=== PATIENT | female | born 1955 | race Caucasian/White ===

== ENCOUNTER 2018-11-19 20:17 | Inpatient (IN) | payer OTHER ==
[~2018-11-19] VITALS: Ht 154.9 cm; Wt 59.9 kg
[2018-11-20] VITALS: BP 110/75
[2018-11-20 00:15] VITALS: BP 110/75
--- NOTE | 2018-11-20 00:30 | NUR ---
SENIOR OCCUPATIONAL THERAPIST NOTE PT ARRIVED TO FLOOR IN VIA GURNEY ACCOMPANIED BY AMBULANCE PERSONNEL AND CAREGIVER. PT IN STABLE CONDITION A&O X2-3. ABLE TO MAKE NEEDS KNOWN. NO SIGNS OF SOB OR DISTRESS NO C/O PAIN. VS ARE STABLE UPON ARRIVAL. RFA #22 S/L. ALL BELONGINGS ACCOUNTED AND SIGNED FOR. SKIN IS INTACT UPON BODY CHECK. TORRES GOLDEN INSIDE SALES CONSULTANT NOTIFIED OF PT. ARRIVAL TO UNIT, AWAITING ADMISSION ORDERS. ALL CURRENT NEEDS ATTENDED TO. BED LOW, LOCKED, UPPER RAILS UP AND CALL LIGHT WITHIN REACH. WILL CONT TO MONITOR.
[2018-11-20] MEDS ORDERED: MAG HYDROX/AL HYDROX/SIMETH 30 ML UDC PO PRN (03:30)
[2018-11-20] MEDS ORDERED: Z GUARD REMEDY 2 OZ OINT TP PRN (03:30)
[2018-11-20] MEDS ORDERED: ONDANSETRON HCL/PF 4 MG/2 ML VIAL IVP PRN (03:30)
[2018-11-20] MEDS ORDERED: ACETAMINOPHEN 325 MG TABLET PO PRN (03:30)
[2018-11-20] MEDS ORDERED: MAGNESIUM HYDROXIDE 30 ML UDC PO PRN (03:30)
[2018-11-20] MEDS ORDERED: HYDROCODONE/APAP 5/325MG 1 EACH TABLET PO PRN (03:30)
[2018-11-20] MEDS ORDERED: ZOLPIDEM TARTRATE 5 MG TABLET PO PRN (03:30)
[2018-11-20] MEDS ORDERED: FERR325T23 PO (03:59)
[2018-11-20] MEDS ORDERED: RISP1TAB7 PO (03:59)
[2018-11-20] MEDS ORDERED: BENZ0.5T43 PO (03:59)
[2018-11-20] MEDS ORDERED: BUPR-51 PO (03:59)
[2018-11-20] MEDS ORDERED: FLUO40CA8 PO (03:59)
[2018-11-20] MEDS ORDERED: CALC-494 PO (03:59)
[2018-11-20] MEDS ORDERED: SERT100T PO (03:59)
[2018-11-20] MEDS ORDERED: LEVO112T5 PO (03:59)
[2018-11-20] MEDS ORDERED: FOLI1TAB16 PO (03:59)
[2018-11-20] MEDS ORDERED: MULT1TAB73 PO (03:59)
[2018-11-20] MEDS ORDERED: DIVA500T2 PO (03:59)
[2018-11-20 04:00] VITALS: BP 124/78
[2018-11-20] MEDS ORDERED: CEFTRIAXONE 1 G VIAL ONE (04:24)
[2018-11-20] MEDS: CEFTRIAXONE 1 G in IV D5W 50 ML IV SCH (04:26)
[2018-11-20] MEDS: IV NS 0.9% 1,000 ML IV PRN ×2 (04:29→19:43)
[2018-11-20] MEDS ORDERED: AZITHROMYCIN 500 MG VIAL ONE (05:27)
[2018-11-20] MEDS: AZITHROMYCIN 500 MG in IV D5W 250 ML IV SCH (05:40)
--- NOTE | 2018-11-20 06:38 | NUR ---
TRAINING ADMINISTRATOR NOTE IN STABLE CONDITION A&O X2-3. ABLE TO MAKE NEEDS KNOWN. NO SIGNS OF SOB OR DISTRESS NO C/O PAIN. CAREGIVER AT BEDSIDE. PT CURRENTLY RESTING IN BED. RFA #22 S/L PATENT WITH IVF INFUSING. ALL CURRENT NEEDS ATTENDED TO. BED LOW, LOCKED, UPPER RAILS UP AND CALL LIGHT WITHIN REACH. WILL CONT TO MONITOR AND ENDORSE TO NEXT SHIFT FOR MYRA.
--- NOTE | 2018-11-20 07:10 | NUR ---
MS RN NOTES PATIENT IN BED ALERT ORIENTED X 2-3. NO ACUTE DISTRESS NOTED. BREATHING UNLABORED, NO SOB NOTED. IV ACCESS PATENT AND INTACT, NO REDNESS OR SWELLING NOTED. SAFETY MEASURES IN PLACE. CALL LIGHT WITHIN REACH. WILL CONTINUE TO MONITOR ACCORDINGLY.
[2018-11-20 07:15] LABS: BASOPHILS % (AUTO) 0.2 % (0.0-2.0); EOSINOPHILS % (AUTO) 0.9 % (0.0-6.0); HEMATOCRIT 37 % (33-45); LYMPHOCYTES # (AUTO) 1.7 /CMM (0.8-4.8); LYMPHOCYTES % (AUTO) 16.7 % (20.0-44.0); MEAN CORPUSCULAR HGB CONC 35 g/dl (31.0-36.0); MEAN CORPUSCULAR VOLUME 102 fL (82-100); MONOCYTES # (AUTO) 1.4 /CMM (0.1-1.30); MONOCYTES % (AUTO) 13.5 % (2.0-12.0); NEUTROPHILS # (AUTO) 6.9 /CMM (1.8-8.9); NEUTROPHILS % (AUTO) 68.7 % (43.0-81.0); PLATELET COUNT (AUTO) 131 /CMM (150-450); RED BLOOD CELL COUNT(AUTO) 3.65 MIL/uL (4.0-5.2)
[2018-11-20 07:48] LABS: ALBUMIN 2.4 g/dL (3.4-5.0); BILIRUBIN,TOTAL 0.2 mg/dL (0.2-1.0); CALCIUM, SERUM 9.3 mg/dL (8.5-10.1); CREATININE 0.5 mg/dL (0.6-1.3); MAGNESIUM 1.8 mg/dL (1.8-2.4); PHOSPHORUS 3.5 mg/dL (2.5-4.9); POTASSIUM 4.3 mmol/L (3.5-5.1); TOTAL PROTEIN, SERUM 5.9 g/dL (6.4-8.2)
[2018-11-20 07:52] LABS: THYROID STIMULATING HORMONE 5.573 uIU/mL (0.358-3.74)
[2018-11-20 08:00] VITALS: BP 105/67
[2018-11-20] MEDS: LEVOTHYROXINE SODIUM 112 MCG TABLET PO SCH (08:04)
[2018-11-20] MEDS: MULTIVITAMINS,THERAGRAN 1 UDTAB TABLET PO SCH (08:19)
[2018-11-20] MEDS: DIVALPROEX SODIUM 250 MG TABLET.DR PO SCH ×2 (08:19→17:19)
[2018-11-20] MEDS: BUPROPION XL 150 MG TAB.ER.24 PO SCH (08:19)
[2018-11-20] MEDS: CALCIUM CARBONATE (1250) 500 MG TABLET PO SCH ×2 (08:19→17:19)
[2018-11-20] MEDS: FOLIC ACID 1 MG TABLET PO SCH (08:19)
[2018-11-20] MEDS: FERROUS SULFATE (325 MG) 325 MG/TAB TABLET PO SCH ×2 (08:19→17:19)
[2018-11-20] MEDS ORDERED: FLUOXETINE HCL 20 MG CAPSULE PO SCH (09:00)
[2018-11-20] MEDS ORDERED: SERTRALINE HCL 50 MG TABLET PO SCH (11:00)
[2018-11-20 16:00] VITALS: BP 92/55
--- NOTE | 2018-11-20 18:54 | NUR ---
MS RN NOTES PATIENT IN BED ALERT ORIENTED X 2-3. NO ACUTE DISTRESS NOTED. BREATHING UNLABORED, NO SOB NOTED. IV ACCESS PATENT AND INTACT, NO REDNESS OR SWELLING NOTED. DUE MEDICATIONS GIVEN. NEEDS ATTENDED AND ANTICIPATED. KEPT CLEAN DRY AND COMFORTABLE. SAFETY MEASURES IN PLACE. CALL LIGHT WITHIN REACH. WILL ENDORSE TO NIGHT NURSE FOR CONTINUITY OF CARE.
--- NOTE | 2018-11-20 19:20 | NUR ---
RN NOTES RECEIVED PATIENT RESTING COMFORTABLY IN BED. PATIENT IS A/O X 2-3. NO RESPIRATORY DISTRESS NOTED. DENIES SHORTNESS OF BREATH. IV ACCESS PATENT AND INTACT. SAFETY PRECAUTIONS IMPLEMENTED. CALL LIGHT WITHIN REACH. WILL CONTINUE TO MONITOR PATIENT THROUGHOUT THE SHIFT.
[2018-11-20 20:00] VITALS: BP 90/60
[2018-11-20] MEDS ORDERED: risperiDONE 1 MG TABLET PO SCH (22:00)
[2018-11-20] MEDS ORDERED: BENZTROPINE MESYLATE (1 MG) 1 MG TABLET PO SCH (22:00)
[2018-11-21 02:47] VITALS: BP 108/69
[2018-11-21] MEDS: CEFTRIAXONE 1 G in IV D5W 50 ML IV SCH (04:45)
[2018-11-21] MEDS: AZITHROMYCIN 500 MG in IV D5W 250 ML IV SCH (05:40)
[2018-11-21 06:07] LABS: BASOPHILS % (AUTO) 0.2 % (0.0-2.0); HEMATOCRIT 34 % (33-45); LYMPHOCYTES # (AUTO) 1.2 /CMM (0.8-4.8); LYMPHOCYTES % (AUTO) 21.7 % (20.0-44.0); MEAN CORPUSCULAR HGB CONC 35 g/dl (31.0-36.0); MEAN CORPUSCULAR VOLUME 103 fL (82-100); MONOCYTES # (AUTO) 0.5 /CMM (0.1-1.30); MONOCYTES % (AUTO) 8.8 % (2.0-12.0); NEUTROPHILS # (AUTO) 3.6 /CMM (1.8-8.9); NEUTROPHILS % (AUTO) 64.3 % (43.0-81.0); PLATELET COUNT (AUTO) 126 /CMM (150-450); RED BLOOD CELL COUNT(AUTO) 3.33 MIL/uL (4.0-5.2); WHITE BLOOD COUNT (AUTO) 5.6 K/uL (4.3-11.0)
[2018-11-21 06:31] LABS: CALCIUM, SERUM 9.4 mg/dL (8.5-10.1); CREATININE 0.5 mg/dL (0.6-1.3); MAGNESIUM 1.5 mg/dL (1.8-2.4)
--- NOTE | 2018-11-21 06:43 | NUR ---
RN CLOSING NOTES PATIENT IS RESTING COMFORTABLY IN BED, AWAKE. A/O X2-3. PATIENT IS ABLE TO MAKE NEEDS KNOWN. NO SIGNS OF RESPIRATORY DISTRESS. NO SIGNS OF SHORTNESS OF BREATH. TURNED/REPOSITIONED Q2H, HEELS OFFLOADED. DENIES PAIN AT THIS TIME. IV SITE PATENT AND INTACT. ALL CURRENT NEEDS ATTENDED TO. SAFETY PRECAUTIONS IMPLEMENTED. CALL LIGHT WITHIN REACH. WILL CONTINUE TO MONITOR AND ENDORSE TO AM RN FOR MYRA.
--- NOTE | 2018-11-21 07:15 | NUR ---
MS/RN OPENING NOTE THE PATIENT IS RECEIVED IN BED. ALERT AND ORIENTED X1. IN ROOM AIR AND DENIES SOB. RESPIRATION REGULAR AND UNLABORED. DENIES PAIN. THE PATIENT IS IN NO APPARENT DISTRESS AT THIS TIME. RFA G 22 PATENT AND NORMAL SALINE INFUSING AT 75ML/HR AND NO S/S INFILTRATION NOTED. BED LOW AND LOCKED. SIDE RAILS UP X3. CALL LIGHT WITHIN REACH. WILL CONTINUE TO MONITOR.
[2018-11-21 08:00] VITALS: BP 117/58
[2018-11-21] MEDS: DIVALPROEX SODIUM 250 MG TABLET.DR PO SCH ×2 (08:38→16:44)
[2018-11-21] MEDS: FOLIC ACID 1 MG TABLET PO SCH (08:38)
[2018-11-21] MEDS: BUPROPION XL 150 MG TAB.ER.24 PO SCH (08:38)
[2018-11-21] MEDS: MULTIVITAMINS,THERAGRAN 1 UDTAB TABLET PO SCH (08:38)
[2018-11-21] MEDS: FERROUS SULFATE (325 MG) 325 MG/TAB TABLET PO SCH ×2 (08:38→16:44)
[2018-11-21] MEDS: LEVOTHYROXINE SODIUM 112 MCG TABLET PO SCH (08:38)
[2018-11-21] MEDS: CALCIUM CARBONATE (1250) 500 MG TABLET PO SCH ×2 (08:38→16:45)
[2018-11-21] MEDS: Magnesium 1GM/D5W 100ML PREMIX 100 ML IV SCH ×2 (10:14→11:21)
[2018-11-21 16:00] VITALS: BP 72/47
[2018-11-21] MEDS: IV NS 0.9% 1,000 ML IV PRN (16:40)
[2018-11-21] MEDS ORDERED: LACTOBACILLUS RHAMNOSUS GG 1 EACH CAP.SPRINK PO SCH (17:00)
--- NOTE | 2018-11-21 18:44 | NUR ---
MS/RN NOTE RECEIVED BACTOBEN ORDER FROM QUANG LAGUNAS FOR MRSA NARES. NOTED AND CARRIED OUT.
--- NOTE | 2018-11-21 18:47 | NUR ---
MS/RN CLOSING NOTE THE PATIENT ALERT AND ORIENTED X1. ABLE TO MAKE NEEDS KNOWN VERBALLY. DENIES PAIN AT THIS TIME. RESPIRATION REGULAR AND UNLABORED. IN ROOM AIR AND SATURATION IS AT 94%. DENIES SOB. THE PATIENT IS IN NO APPARENT DISTRESS. RFA G 22 PATENT AND NORMAL SALINE INFUSING AT 75ML/HR AND NO S/S INFILTRATION NOTED. BED LOW AND LOCKED. SIDE RAILS UP X3. CALL LIGHT WITHIN REACH. THE PATIENT IS READY FOR DISCHARGE. WILL ENDORSE TO CAMPAIGN ADVISOR.
[2018-11-21] MEDS ORDERED: MUPIROCIN OINT 2% 22 GM TUBE SCH (19:00)
--- NOTE | 2018-11-21 20:04 | NUR ---
RN MS DISCHARGE NOTES PT DISCHARGED HOME WITH EMS, VITALS STABLE, IV REMOVED, BACTROBAN SENT HOME WITH PT, BELONGINGS CONFIRMED
[2018-11-21 20:07] VITALS: BP 91/57
[2018-11-21 20:10] VITALS: BP 91/57
== END 2018-11-21 20:05 | disposition home or self-care (01) | DRG 720 ==
LOC: TELE 11-20 00:09 → MED 11-20 09:25
PROVIDERS: ADMIT Nurse Practitioner Acute Care; ATTEND Nurse Practitioner Acute Care
DX: A41.9 Sepsis, unspecified organism (principal); G93.41 Metabolic encephalopathy; J15.9 Unspecified bacterial pneumonia; E87.0 Hyperosmolality and hypernatremia; D68.59 Other primary thrombophilia; E83.42 Hypomagnesemia; E86.0 Dehydration; E86.1 Hypovolemia; G80.9 Cerebral palsy, unspecified; E03.9 Hypothyroidism, unspecified; F32.9 Major depressive disorder, single episode, unspecified; M19.90 Unspecified osteoarthritis, unspecified site; Z96.653 Presence of artificial knee joint, bilateral; F20.9 Schizophrenia, unspecified
CPT/HCPCS: 36415; 71045-TC; 80048-TC; 80053-TC; 80061-TC; 83735-TC; 84100-TC; 84443-TC; 85025-TC; 87040-TC; 87081-TC; 97112-TC; 97530-TC; G0378; J0456; J0696; J3475; J7030; J7050; J7060